=== PATIENT | female | born 2000 | race Caucasian/White ===

== ENCOUNTER 2020-10-29 23:20 | Day surgery (SDC) | payer OTHER ==
[2020-10-29 23:49] VITALS: BMI 20.1
[2020-10-30 03:12] LABS: Bilirubin Neg (Negative); Blood, Urine Negative (Negative); Clarity Cloudy (Clear); Glucose, Urine (Dipstick) Normal (Negative); Ketone, Urine Negative (Negative); Leukocyte 100 (Negative); Nitrite Negative (Negative); Protein, Urine (Dipstick) Negative (Neg-Trace); Urobilinogen Normal mg/dL (Less than 2)
[2020-10-30 03:29] LABS: Bacteria/HPF 3+ HPF (None Seen); Mucous/LPF 1+ LPF (<2+); RBC/HPF 0-3 HPF (0-3); Squamous Epithelial 0-3 HPF (0-3)
== END 2020-10-30 04:30 | disposition home or self-care (01) ==
LOC: CSHLD/OP 23:20
PROVIDERS: ATTEND Obstetrics & Gynecology
DX: O99.891 Other specified diseases and conditions complicating pregnancy (principal); R10.819 Abdominal tenderness, unspecified site; Z3A.21 21 weeks gestation of pregnancy; V89.2XXA Person injured in unspecified motor-vehicle accident, traffic, initial encounter
CPT/HCPCS: 81001; 87086; 99283